=== PATIENT | female | born 1965 | race Caucasian/White ===

== ENCOUNTER 2016-10-24 05:46 | Observation (INO) | payer BC, OTHER ==
--- NOTE | 2016-10-07 13:09 | PAT Medication Instructions ---
Service Date Oct 07, 2016. Current Home Medication List Amitriptyline Hcl (Elavil), 10 MG PO HS Duloxetine Hcl (Cymbalta), 60 MG PO HS Ibuprofen (Advil), 400 MG PO Ibuprofen (Advil), 400-600 MG PO Q6H PRN for Pain Loratadine (Allergy), 10 MG PO QAM Meloxicam (Mobic), 15 MG PO BID Methocarbamol (Robaxin), 500 MG PO HS Tizanidine (Zanaflex), 4 MG PO TID Medication Instructions For Your Scheduled Surgery - Hold the following medications 7-10 days prior to surgery per surgeon instructions: Ibuprofen (Advil), 400-600 MG PO Q6H PRN for Pain Meloxicam (Mobic), 15 MG PO BID - Hold the following medications the morning of surgery: Tizanidine (Zanaflex), 4 MG PO TID Loratadine (Allergy), 10 MG PO QAM - Take the following medications the morning of surgery with a sip of water: Tylenol (if needed) - Take the following medications as scheduled the night before surgery: Tizanidine (Zanaflex), 4 MG PO TID Methocarbamol (Robaxin), 500 MG PO HS Duloxetine Hcl (Cymbalta), 60 MG PO HS Tylenol (if needed) If you have any questions please call us at [phone] or [phone] ( [place]) or [phone]
[2016-10-07 14:02] LABS: BASO % 0.4 %; BASO ABS # 0.02 K/uL (0-0.2); COMPLETE YES; EOS % 2.9 %; HEMATOCRIT 42.2 % (37-47); IG% 0.2 %; LYMPH % 41.1 %; LYMPH ABS # 2.16 K/uL (1.2-3.4); MEAN CELL VOLUME 86.7 fL (80-100); MEAN CORPUSCULAR HGB CONC 33.4 g/dl (32-36); MEAN PLATELET VOLUME 12.3 fL (7.4-10.4); MONO % 8.6 %; NEUT % 46.8 %; PLATELET COUNT 243 K/uL (130-400); RED BLOOD COUNT 4.87 M/uL (4.2-5.4); WHITE BLOOD COUNT 5.25 K/uL (4.8-10.8)
--- NOTE | 2016-10-07 14:11 | DIAGNOSTIC IMAGING REPORT ---
CHEST PREADMISSION(PA/LAT) HISTORY: Preop. COMPARISON: Chest 02/23/2009. FINDINGS: The lungs are clear. Cardiac silhouette is normal in size. No pleural effusions. No pneumothorax. Cervical spinal fusion hardware. IMPRESSION: No acute process. Electronically signed by: Tejas Naylor M.D. 10/07/2016 2:10 PM Dictated Date/Time: 10/07/2016 2:07 PM
[2016-10-07 14:15] LABS: URINE APPEARANCE CLEAR (CLEAR); URINE BILIRUBIN NEG (NEG); URINE COLOR YELLOW; URINE NITRITE NEG (NEG); URINE PH 6.5 (4.5-7.5); URINE SPECIFIC GRAVITY 1.008 (1.000-1.030); UROBILINOGEN NEG (NEG)
[2016-10-07 14:19] LABS: MANUAL MICROSCOPIC REQUIRED? NO; REVIEW REQ? NO
[2016-10-07 14:22] LABS: BUN/CREATININE RATIO 17.1 (10-20); CALCIUM 9.4 mg/dl (8.5-10.1); CREATININE 0.66 mg/dl (0.60-1.20); POTASSIUM 4.1 mmol/L (3.5-5.1)
[~2016-10-24] VITALS: Ht 167.6 cm; Wt 84.1 kg
[2016-10-24] VITALS (13 sets, daily range): BP systolic 109–148; BP diastolic 71–97; PULSE 93–130; TEMP 36.8–37.3; O2SAT 90–97; Ht 167.6 cm; Wt 84.1 kg
[~2016-10-24 05:46] MED LIST: AMIT10TA6 PO; DULO60CA44 PO; IBUP-1050 PO; LORA10TA44 PO; MELO15TA4 PO; METH500T PO; TIZA4CAP PO
[2016-10-24] MEDS ORDERED: CEFAZOLIN 2000 MG/60 ML D5W IV SCH (06:00)
[2016-10-24] MEDS ORDERED: LACTATED RINGER'S 1000ML 1,000 ML IV SCH (06:00)
[2016-10-24] MEDS ORDERED: FENTANYL CITRATE INJ 50 MCG/1 ML 2 ML VIAL ONE ×3 (06:42→09:04)
[2016-10-24] MEDS ORDERED: MIDAZOLAM HCL 1 MG/ML 2ML VIAL ONE (06:42)
[2016-10-24] MEDS ORDERED: SODIUM CHLORIDE 0.9% PF 50 ML VIAL ONE (06:50)
[2016-10-24] MEDS ORDERED: BACITRACIN 50000 UNIT VIAL ONE (06:51)
[2016-10-24] MEDS ORDERED: EpHEDrine SULFATE INJ 50 MG/ML AMP IV PRN (07:00)
[2016-10-24] MEDS ORDERED: ONDANSETRON INJ 2 MG/ML 2 ML VIAL IV PRN ×2 (07:00→17:30)
[2016-10-24] MEDS ORDERED: ATROPINE SULFATE 0.1 MG/ML 5ML SYR IV PRN (07:00)
[2016-10-24] MEDS ORDERED: TRAM-10 PO (07:09)
--- NOTE | 2016-10-24 07:17 | History & Physical Bridge Note ---
H&P Re-Evaluation Bridge Note: I have examined the patient, reviewed the History & Physical and in the interval since the performance of the History & Physical I have noted the following changes of clinical significance: No changes noted
--- NOTE | 2016-10-24 07:20 | History and Physical ---
History & Physical Date Oct 24, 2016. Chief Complaint neck and arm pain History of Present Illness The patient is a 51 year old female with complaints of Additional History Hepatic Disease: No Endocrine Disorder: No Kidney Disease: No Hypertension: No Heart Disease: No Bleeding Tendencies: No Infectious Diseases: No Allergies Coded Allergies: No Known Allergies (Verified , NONE, 10/07/16) Home Medications Scheduled Amitriptyline Hcl (Elavil), 10 MG PO HS Duloxetine Hcl (Cymbalta), 60 MG PO HS Loratadine (Allergy), 10 MG PO QAM Meloxicam (Mobic), 15 MG PO BID Tizanidine (Zanaflex), 4 MG PO TID Scheduled PRN Ibuprofen (Advil), 400-600 MG PO Q6H PRN for Pain Tramadol (Ultram), 50 MG PO Q4H PRN for Pain Physical Examination Skin: warm/dry, no rash Eyes: normal inspection, EOMI, sclerae normal ENT: normal ENT inspection, pharynx normal Head: normocephalic, atraumatic Neck: supple, no adenopathy, trachea midline Respiratory/Chest: lungs clear, normal breath sounds, no respiratory distress Cardiovascular: regular rate, rhythm, no edema, no murmur Abdomen / GI: normal bowel sounds, non tender Back: normal inspection Extremities: normal inspection, normal range of motion Neurologic/Psych: no motor/sensory deficits, alert, normal reflexes, oriented x 3 Diagnosis cervical spondylsis with myeloradiculopathy Plan of Treatment acdf c4-5 c5-6 removal plate c6-7
[2016-10-24] MEDS ORDERED: HYDROmorphone INJ 2 MG/ML SYR/VIAL ONE ×2 (07:58→09:04)
[2016-10-24] MEDS ORDERED: ONDANSETRON INJ 2 MG/ML 2 ML VIAL ONE ×2 (08:51→09:25)
[2016-10-24] MEDS ORDERED: LIDOCAINE HCL 2% 2 ML VIAL (20MG/ML) ONE (08:51)
[2016-10-24] MEDS ORDERED: PROPOFOL IV EMULSION 10 MG/ML 20 ML VIAL IV ONE (08:51)
[2016-10-24] MEDS ORDERED: DEXAMETHASONE SOD INJ 4 MG/ML VIAL ONE (08:51)
[2016-10-24] MEDS ORDERED: ROCURONIUM BROMIDE 10 MG/ML 5 ML VIAL ONE (08:51)
--- NOTE | 2016-10-24 09:03 | [facility] Operative Report ---
Operative Report Operative Date Oct 24, 2016. Pre-Operative Diagnosis Cervical spondylsis with myeloradiculopathy Surgeon Dr. Andi Lynn Yarn Carrier Surgeon(s) Javi Narvaez PA-C Estimated Blood Loss 30mL Findings stenosis Specimens None per surgeon I attest to the content of the Intraoperative Record and any orders documented therein. Any exceptions are noted below.
[2016-10-24] MEDS ORDERED: FLOSEAL HEMOSTATIC MATRIX 5ML TOP ONE (09:11)
[2016-10-24] MEDS ORDERED: ACETAMINOPHEN IV 100 ML IV PRN (09:15)
[2016-10-24] MEDS ORDERED: DiphenhydrAMINE HCL 50 MG/ML VIAL IV PRN (09:15)
[2016-10-24] MEDS ORDERED: DO NOT ADMINISTER PNEUMOCOCCAL VACCINE PRN ×2 (09:15)
[2016-10-24] MEDS ORDERED: TRAMADOL HCL 50 MG TAB PO PRN (09:15)
[2016-10-24] MEDS ORDERED: LORAZEPAM INJ 0.5 MG in SYRINGE 0.75 ML IV PRN (09:15)
[2016-10-24] MEDS ORDERED: LORAZEPAM 0.5 MG TAB PO PRN (09:15)
[2016-10-24] MEDS ORDERED: DO NOT ADMINISTER FLU VACCINE PRN ×3 (09:15)
[2016-10-24] MEDS ORDERED: HYDROmorphone INJ 0.5 MG/0.5 ML SYR IV PRN (09:15)
[2016-10-24] MEDS ORDERED: RACEPINEPHRINE 2.25% NEBU SOLN 0.5 ML VIAL INH PRN (09:15)
[2016-10-24] MEDS ORDERED: MAGNESIUM HYDROXIDE SUSP 30 ML UDC PO PRN (09:15)
[2016-10-24] MEDS ORDERED: DEXAMETHASONE INJ 8 MG in SYRINGE 0 ML IV PRN (09:15)
[2016-10-24] MEDS ORDERED: NALOXONE HCL 0.4 MG/1 ML VIAL/CARP IV PRN (09:15)
[2016-10-24] MEDS ORDERED: METOPROLOL TARTRATE 1 MG/ML VIAL ONE (09:19)
[2016-10-24] MEDS ORDERED: GLYCOPYRROLATE INJ 0.2 MG/ML VIAL ONE (09:25)
[2016-10-24] MEDS ORDERED: NEOSTIGMINE METHYLSULFATE 1 MG/ML 10ML VIAL ONE (09:25)
[2016-10-24] MEDS ORDERED: ESMOLOL HCL 10 MG/ML 10 ML VIAL ONE (09:25)
[2016-10-24] MEDS ORDERED: LABETALOL HCL IV 5 MG/ML 20ML IV ONE (09:25)
[2016-10-24] MEDS ORDERED: PHENYLEPHRINE 100MCG/ML 5ML SYR ONE (09:26)
[2016-10-24] MEDS ORDERED: EpHEDrine SULFATE 50MG/5ML SYR ONE (09:26)
[2016-10-24] MEDS: FENTANYL CITRATE INJ 50 MCG/1 ML 2 ML VIAL IV PRN ×5 (09:28→10:15)
--- NOTE | 2016-10-24 09:28 | OPERATIVE REPORT ---
DATE OF OPERATION: 10/24/2016 PREOPERATIVE DIAGNOSES: Cervical spondylosis, myeloradiculopathy. POSTOPERATIVE DIAGNOSES: Same. PROCEDURE PERFORMED: 1. Removal of anterior cervical instrumentation, C6-C7. 2. Exploration of fusion, C6-C7. 3. Anterior cervical discectomy with bilateral foraminotomy, C4-C5 and C5-C6. 4. Anterior cervical arthrodesis C4-C5 and C5-C6. 5. Placement of cortical allograft filled Lexis bone 6 mm in height at C4-C5 and 7 mm in height at C5-C6. 6. Application of Globus plate and screws from C4-C6. SURGEON: Dr. Andi Lynn. LEVEL VIAL INSPECTOR: Javi Narvaez PA-C. Due to the complex nature of the procedure, the entire surgery was performed with the boiler assistant operator of Javi Narvaez PA-C. The collections assistant, under direct supervision, was involved in the actual performance of all aspects of the surgical procedure including hemostasis, tissue retraction and incision, instrument management, patient positioning, and wound closure. ANESTHESIA: General. DISPOSITION: The patient awakened and taken to PACU in stable condition. HISTORY OF PATIENT'S PROBLEMS: This is a 51-year-old female that presents with above-mentioned diagnoses. After failing an extensive course of nonoperative care, elected to undergo the above-mentioned procedure. Risks, benefits, pros, cons, and alternatives were outlined in detail preoperatively. OPERATION AND FINDINGS: The patient was met with preoperatively, the case discussed, and all questions were addressed. At that point, the patient was taken back to operative suite, and after undergoing successful general endotracheal intubation via department of anesthesia, was placed in supine position on Jaswinder table with head in Thomas head of marketing adometry. All bony prominences were well padded and the eyes were inspected to ensure there was no external pressure placed upon them. At this point, the anterior cervical spine was prepped and draped in normal sterile fashion. With the assistance of fluoroscopy, we identified the C5-C6 disc space and transverse incision was placed along the right anterior aspect of the cervical spine overlying this region. Sharp dissection with the assistance of bipolar cautery performed down to and exposing the anterior cervical spine from C4-C7. We were able to easily identify the plate and remove it without difficulty. We explored the fusion mass, noting it to be intact. I then performed a complete discectomy at C4-C5 out to the uncovertebral joints bilaterally. Clayton distracting pins to assist us in our visualization. I did remove all posterior annular fibers, longitudinal ligament for complete decompression. Endplates were then burred to subcortical bone and a 6 mm cortical allograft filled with Lexis bone tapped into position. I then proceeded to C5-C6 and again complete discectomy was performed out to the uncovertebral joints bilaterally. Clayton distracting pins utilized to assist us in our visualization. We did remove all posterior annular fibers, longitudinal ligament, and bilateral foraminotomies. Endplates were then burred to subcortical bleeding bone and a 7 mm cortical allograft filled with Lexis bone tapped in position. Distracting apparatus was removed and a Globus plate and screw was applied with the assistance of fluoroscopy at C4-C5 and C5-C6. Incision was then copiously irrigated, explored to ensure there was no damage to surrounding structures or remaining bleeding, and a 10 round PINKY drain inserted and closed with 1-0 Vicryl in the fascia, 2-0 Vicryl subcutaneously, 4-0 Monocryl for final skin closure. Steri-Strips and sterile dressing placed. The patient awakened and taken to PACU in stable condition. I attest to the content of the Intraoperative Record and any orders documented therein. Any exceptio ns are noted below.
[2016-10-24] MEDS ORDERED: HYDROmorphone INJ 1 MG/ML SYR IV PRN (09:30)
--- NOTE | 2016-10-24 09:32 | DIAGNOSTIC IMAGING REPORT ---
INTRAOPERATIVE CERVICAL SPINE 2 VIEWS CLINICAL HISTORY: ACDF C4-6 COMPARISON STUDY: No previous studies for comparison. FINDINGS: 8 seconds of fluoroscopic time was utilized. 2 fluoroscopic spot images were acquired. There are postsurgical changes of an anterior discectomy with interbody bone plugs performed the C4-5 and C5-6 levels. There is an anterior metallic plate with screws the C4, C5, and C6 levels. IMPRESSION: Postsurgical changes of anterior cervical discectomy and fusion at the C4-5 and C5-6 levels. Electronically signed by: Tan Salas M.D. 10/24/2016 9:30 AM Dictated Date/Time: 10/24/2016 9:29 AM
[2016-10-24] MEDS ORDERED: IV FLUIDS COMPLETED PRN (09:45)
[2016-10-24] MEDS ORDERED: NURSING VERBAL MED ORDER ONE ×4 (10:15→17:30)
[2016-10-24] MEDS ORDERED: LORAZEPAM 2 MG/ML 1 ML VIAL ONE (10:46)
--- NOTE | 2016-10-24 11:27 | Anesthesiology Progress Note ---
Anesthesia Post Op Note Date & Time Oct 24, 2016 at 11:24 Vital Signs Pain Intensity: 2 Vital Signs Past 12 Hours Date Time Temp Pulse Resp B/P Pulse Ox O2 Delivery O2 Flow Rate FiO2 10/24/16 11:03 112 10/24/16 11:00 113 14 10/24/16 11:00 113 14 115/68 93 10/24/16 10:55 119 15 10/24/16 10:55 117 15 112/79 93 10/24/16 10:50 121 12 134/64 96 10/24/16 10:50 121 12 10/24/16 10:45 119 10 10/24/16 10:45 118 10 126/78 95 10/24/16 10:40 123 10 10/24/16 10:40 122 10 114/95 93 10/24/16 10:35 118 12 94/85 94 10/24/16 10:35 118 12 10/24/16 10:34 36.2 10/24/16 10:31 125 20 10/24/16 10:31 126 20 94 10/24/16 10:26 109 13 94 10/24/16 10:26 110 13 10/24/16 10:25 128/65 10/24/16 10:21 112 14 10/24/16 10:21 113 14 94 10/24/16 10:20 109/42 10/24/16 10:16 115 9 97 10/24/16 10:16 115 9 10/24/16 10:15 119/67 10/24/16 10:11 120 14 10/24/16 10:11 119 14 96 10/24/16 10:10 126/73 10/24/16 10:06 114 16 95 10/24/16 10:06 115 16 10/24/16 10:05 134/66 10/24/16 10:01 116 16 10/24/16 10:01 116 16 92 10/24/16 10:00 114/74 10/24/16 09:56 115 10 10/24/16 09:56 115 10 97 10/24/16 09:55 112 12 10/24/16 09:55 111 12 124/73 92 10/24/16 09:50 111 8 125/82 93 10/24/16 09:50 110 8 10/24/16 09:45 113 11 10/24/16 09:45 Nasal Cannula 3 10/24/16 09:45 111 11 137/80 99 10/24/16 09:40 112 12 125/74 98 10/24/16 09:40 112 12 10/24/16 09:35 109 12 10/24/16 09:35 109 12 132/80 99 10/24/16 09:30 110 14 130/79 100 10/24/16 09:30 110 14 10/24/16 09:25 108 15 10/24/16 09:25 107 15 130/81 100 10/24/16 09:22 120/80 10/24/16 09:22 122 126/88 10/24/16 09:20 36.4 118 16 120/80 100 Mask 10 10/24/16 06:52 36.8 93 16 125/97 95 Room Air Notes Mental Status: alert / awake / arousable, participated in evaluation Pt Amnestic to Procedure: Yes Nausea / Vomiting: adequately controlled Pain: adequately controlled Airway Patency, RR, SpO2: stable & adequate BP & HR: stable & adequate Hydration State: stable & adequate Anesthetic Complications: no major complications apparent Pt was noted to be tachycardic in PACU, HR in the 110s. I spoke with the pt, and she denied pain or anxiety. She did state having some restlessness. A 12 lead EKG was performed showing sinus tachycardia without notable ST changes. She was given a total of 5mg of metoprolol IV and 0.5mg ativan IV. Pt was resting comfortably without any complaints. The pt was otherwise stable for discharge to her room.
[2016-10-24] MEDS: MoRPHine SULFATE 10 MG/ML CARP/VIAL IV PRN ×2 (12:10→12:15)
[2016-10-24] MEDS: LACTATED RINGER'S 1000ML 1,000 ML IV SCH ×2 (13:32→21:14)
[2016-10-24] MEDS: OXYCODONE HCL IR 5 MG TAB (IMMEDIATE RELEASE) PO PRN ×3 (14:38→20:31)
[2016-10-24] MEDS: DEXAMETHASONE INJ 6 MG in SYRINGE 0 ML IV SCH ×2 (16:10→23:11)
[2016-10-24] MEDS: CEFAZOLIN IV 2,000 MG in DEXTROSE 5% 50ML 50 ML IV SCH ×2 (16:21→23:11)
[2016-10-24] MEDS ORDERED: LORAZEPAM INJ 1 MG in SYRINGE 0.5 ML IV ONE (16:30)
[2016-10-24] MEDS ORDERED: PROMETHAZINE HCL INJ 25 MG in SODIUM CHLORIDE 0.9% 50ML 50 ML IV PRN (17:30)
[2016-10-24 19:36] LABS: HEMATOCRIT 39.8 % (37-47)
[2016-10-24 19:53] LABS: BUN/CREATININE RATIO 12.3 (10-20); CALCIUM 9.1 mg/dl (8.5-10.1); CREATININE 0.69 mg/dl (0.60-1.20); POTASSIUM 4.2 mmol/L (3.5-5.1)
[2016-10-24] MEDS: DOCUSATE SODIUM 100 MG CAP PO SCH (20:31)
--- NOTE | 2016-10-24 20:55 | Medical Consult ---
Consultation Date of Consultation: Oct 24, 2016 patient seen in her room @ 20:40 . Attending Physician: Andi Lynn D.O. . Reason for Consultation: tachycardia . History of Present Illness 51 YO female from [place], followed by Dr. Rico for primary care. History of anxiety, depression, cervical spondylosis with radiculopathy. Anterior cervical exploration, decompression, fusion performed today by Dr. Lynn. Patient has been tachycardiac throughout the day with heart rates at high as 130. She feels well except for postop pain rated 8-9/10 and some transient nausea. No fever. No hypoxia. No chest pain. No cough or dyspnea. No vomiting. Has Murdock cath post op. . Past Medical/Surgical History Chronic Medical Problems: (1) Anxiety Status: Chronic (2) Cervical stenosis of spinal canal Status: Chronic (3) Depression Status: Chronic Surgical Problems: (1) status post anterior cervical discectomy foraminotomy fusion C6-7 Permanent Comment: Dr. Lynn 2008 Status: Chronic . Family History Unknown (adopted) . Social History Smoking Status: Former Smoker Alcohol Use: none Allergies Coded Allergies: No Known Allergies (Verified , NONE, 10/07/16) Home Medications Reported Home Medications Medications Dose Route/Sig Max Daily Dose Days Date Category Ultram (Tramadol HCl) 50 Mg Tab 50 Mg PO Q4H PRN 10/24/16 Reported Advil (Ibuprofen) 200 Mg Tab 400-600 Mg PO Q6H PRN 10/07/16 Reported Allergy (Loratadine) 10 Mg Tab 10 Mg PO HS 10/07/16 Reported Elavil (Amitriptyline Hcl) 10 Mg Tab 10 Mg PO HS 10/07/16 Reported Cymbalta (Duloxetine Hcl) 60 Mg Cap 60 Mg PO HS 10/07/16 Reported Zanaflex (Tizanidine HCl) 4 Mg Cap 4 Mg PO TID 10/07/16 Reported Mobic (Meloxicam) 15 Mg Tab 15 Mg PO BID 10/07/16 Reported Current Inpatient Medications Current Inpatient Medications Medications (Trade) Dose Ordered Sig/Sandip Route Start Time Stop Time Status Last Admin Dose Admin Racepinephrine 0.5 ml 0.5 ml ONE PRN INH 10/24/16 09:15 11/23/16 09:14 Acetaminophen (Ofirmev Iv) 100 ml @ 400 mls/hr Q8H PRN IV 10/24/16 09:15 11/23/16 09:14 Hydromorphone HCl (Dilaudid Inj) 0.5 mg Q3H PRN IV 10/24/16 09:15 11/07/16 09:14 Magnesium Hydroxide (Milk Of Magnesia Susp) 30 ml DAILY PRN PO 10/24/16 09:15 11/23/16 09:14 Docusate Sodium 100 mg 100 mg BID PO 10/24/16 21:00 11/23/16 20:59 10/24/16 20:31 100 MG Cefazolin Sodium/ Dextrose (Ancef Iv/D5 50ml) 60 ml @ 100 mls/hr Q8H IV 10/24/16 16:00 10/25/16 08:35 10/24/16 16:21 100 MLS/HR Lorazepam 0.5 mg 0.5 mg Q8H PRN PO 10/24/16 09:15 11/23/16 09:14 Lorazepam/Syringe (Ativan Inj/ Syringe) 1 ml @ 1 mls/min Q8H PRN IV 10/24/16 09:15 11/23/16 09:14 Diphenhydramine HCl 25 mg 25 mg Q6H PRN IV 10/24/16 09:15 11/23/16 09:14 Dexamethasone Sodium Phosphate/ Syringe (Decadron Inj/ Syringe) 1.5 ml @ 1 mls/min Q8H IV 10/24/16 16:00 10/25/16 08:02 10/24/16 16:10 1 MLS/MIN Pneumococcal Polysaccharide Vaccine 1 ea PRN PRN N/A 10/24/16 09:15 11/23/16 09:14 Influenza Virus Vacc Triv Types A&B 1 ea 1 ea PRN PRN N/A 10/24/16 09:15 11/23/16 09:14 Lactated Ringer's (Lr 1000ml) 1,000 ml @ 80 mls/hr [id number] IV 10/24/16 09:03 10/25/16 13:30 10/24/16 13:32 80 MLS/HR Oxycodone HCl (Roxicodone Immediate Rel Tab) 5mg for pain scale 4-6 1... Q4H PRN PO 10/24/16 09:15 11/07/16 09:14 10/24/16 20:31 10 MG Polyethylene (Miralax Powder Packet) 17 gm DAILY PO 10/26/16 09:00 11/25/16 08:59 Bisacodyl (Dulcolax Tab) 5 mg DAILY PRN PO 10/26/16 06:00 11/25/16 05:59 Bisacodyl 10 mg 10 mg DAILY PRN DC 10/26/16 06:00 11/25/16 05:59 Dexamethasone Sodium Phosphate/ Syringe (Decadron Inj/ Syringe) 2 ml @ 1 mls/min ONE PRN IV 10/24/16 09:15 11/23/16 09:14 Naloxone HCl (Narcan Inj) 0.1 mg Q5M PRN IV 10/24/16 09:15 11/23/16 09:14 Amitriptyline HCl (Elavil Tab) 10 mg HS PO 10/24/16 21:00 11/23/16 20:59 Duloxetine HCl (Cymbalta Cap) 60 mg HS PO 10/24/16 21:00 11/23/16 20:59 10/24/16 20:31 60 MG Tramadol HCl (Ultram Tab) 50 mg Q4H PRN PO 10/24/16 09:15 11/23/16 09:14 Hydromorphone HCl (Dilaudid Inj) 1 mg Q3H PRN IV 10/24/16 09:30 11/07/16 09:29 Miscellaneous (Iv Fluids Completed) 1 ea PRN PRN N/A 10/24/16 09:45 10/24/17 09:44 Ondansetron HCl 4 mg 4 mg Q6H PRN IV 10/24/16 17:30 11/23/16 17:29 Promethazine HCl/ Sodium Chloride (Phenergan Inj/ Nss 50ml) 51 ml @ 204 mls/hr Q6H PRN IV 10/24/16 17:30 11/23/16 17:29 Review of Systems As noted above. . Physical Exam Date Time Temp Pulse Resp B/P Pulse Ox O2 Delivery O2 Flow Rate FiO2 10/24/16 20:07 130 14 90 Room Air 10/24/16 19:34 37.3 127 16 148/88 93 Nasal Cannula 2.0 BiPAP 10/24/16 19:14 Nasal Cannula 10/24/16 18:50 127 10/24/16 16:05 36.9 119 16 135/77 96 Nasal Cannula 2.0 10/24/16 15:50 125 16 97 Nasal Cannula 3.0 10/24/16 15:04 36.9 121 17 123/86 95 Nasal Cannula 3.0 10/24/16 13:54 36.8 120 17 120/79 94 Humidified Oxygen 3.0 10/24/16 13:29 121 16 109/71 94 Nasal Cannula 3.0 10/24/16 13:28 122 16 96 Nasal Cannula 4.0 10/24/16 13:00 94 Nasal Cannula 3.0 10/24/16 13:00 37.0 128 18 115/74 94 Nasal Cannula 3.0 10/24/16 13:00 Nasal Cannula 3.0 Humidified Oxygen 10/24/16 12:55 36.8 115/68 10/24/16 12:51 121 13 10/24/16 12:51 121 13 96 10/24/16 12:50 111/76 10/24/16 12:46 117 17 10/24/16 12:46 116 17 96 10/24/16 12:45 107/79 10/24/16 12:41 119 11 96 10/24/16 12:41 119 11 10/24/16 12:40 101/68 10/24/16 12:36 118 13 95 10/24/16 12:36 118 13 10/24/16 12:35 117/71 10/24/16 12:31 118 9 10/24/16 12:31 117 9 95 10/24/16 12:30 118/71 10/24/16 12:26 118 14 10/24/16 12:26 118 14 95 10/24/16 12:25 120 19 10/24/16 12:25 120 19 118/84 95 10/24/16 12:20 117 16 10/24/16 12:20 118 16 109/70 95 10/24/16 12:15 118 13 108/71 94 10/24/16 12:15 118 13 10/24/16 12:10 117 14 115/68 95 10/24/16 12:10 117 14 10/24/16 12:05 118 11 10/24/16 12:05 120 11 113/71 94 10/24/16 12:00 120 15 107/68 95 10/24/16 12:00 120 15 10/24/16 11:55 120 17 123/64 95 10/24/16 11:55 120 17 10/24/16 11:50 121 12 118/61 93 10/24/16 11:50 121 12 10/24/16 11:45 116 13 126/75 94 10/24/16 11:45 117 13 10/24/16 11:41 115/67 10/24/16 11:40 119 10 94 10/24/16 11:40 119 10 10/24/16 11:35 119 12 111/65 93 10/24/16 11:35 119 12 10/24/16 11:34 119 11 10/24/16 11:34 120 11 94 10/24/16 11:30 114/60 10/24/16 11:29 116 10/24/16 11:29 117 14 94 10/24/16 11:25 113/70 10/24/16 11:24 117 14 94 10/24/16 11:24 117 10/24/16 11:20 119/60 10/24/16 11:19 118 10 93 10/24/16 11:19 117 10 10/24/16 11:15 138/ 10/24/16 11:14 116 12 94 10/24/16 11:14 116 12 10/24/16 11:10 117/70 10/24/16 11:09 118 14 10/24/16 11:09 119 14 93 10/24/16 11:05 113/80 10/24/16 11:04 121 15 10/24/16 11:04 122 15 93 10/24/16 11:03 112 10/24/16 11:00 113 14 10/24/16 11:00 113 14 115/68 93 10/24/16 10:55 119 15 10/24/16 10:55 117 15 112/79 93 10/24/16 10:50 121 12 134/64 96 10/24/16 10:50 121 12 10/24/16 10:45 119 10 10/24/16 10:45 118 10 126/78 95 10/24/16 10:40 123 10 10/24/16 10:40 122 10 114/95 93 10/24/16 10:35 118 12 94/85 94 10/24/16 10:35 118 12 10/24/16 10:34 36.2 10/24/16 10:31 125 20 10/24/16 10:31 126 20 94 10/24/16 10:26 109 13 94 10/24/16 10:26 110 13 10/24/16 10:25 128/65 10/24/16 10:21 112 14 10/24/16 10:21 113 14 94 10/24/16 10:20 109/42 10/24/16 10:16 115 9 97 10/24/16 10:16 115 9 10/24/16 10:15 119/67 10/24/16 10:11 120 14 10/24/16 10:11 119 14 96 10/24/16 10:10 126/73 10/24/16 10:06 114 16 95 10/24/16 10:06 115 16 10/24/16 10:05 134/66 10/24/16 10:01 116 16 10/24/16 10:01 116 16 92 10/24/16 10:00 114/74 10/24/16 09:56 115 10 10/24/16 09:56 115 10 97 10/24/16 09:55 112 12 10/24/16 09:55 111 12 124/73 92 10/24/16 09:50 111 8 125/82 93 10/24/16 09:50 110 8 10/24/16 09:45 113 11 10/24/16 09:45 Nasal Cannula 3 10/24/16 09:45 111 11 137/80 99 10/24/16 09:40 112 12 125/74 98 10/24/16 09:40 112 12 10/24/16 09:35 109 12 10/24/16 09:35 109 12 132/80 99 10/24/16 09:30 110 14 130/79 100 10/24/16 09:30 110 14 10/24/16 09:25 108 15 10/24/16 09:25 107 15 130/81 100 10/24/16 09:22 120/80 10/24/16 09:22 122 126/88 10/24/16 09:20 36.4 118 16 120/80 100 Mask 10 10/24/16 06:52 36.8 93 16 125/97 95 Room Air General Appearance: WD/WN, no apparent distress Head: normocephalic, atraumatic Eyes: normal inspection, PERRL, EOMI, sclerae normal ENT: normal ENT inspection, hearing grossly normal Neck: + pertinent finding (cervical collar) Respiratory/Chest: lungs clear, normal breath sounds, no respiratory distress, no accessory muscle use Cardiovascular: regular rate, rhythm, no edema, no JVD, + tachycardia, + systolic murmur (I/ systolic murmur at base) Abdomen/GI: normal bowel sounds, non tender, soft, no organomegaly, no pulsatile mass Extremities/Musculoskelatal: normal inspection, no calf tenderness, no pedal edema, + pertinent finding (TEDS and SCD's applied to both lower extremities) Neurologic/Psych: 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-XII nml as tested (PERRL, EOMI, no facial palsy, no dysarthria), alert, normal mood/affect, oriented x 3 Skin: normal color, warm/dry, no rash Laboratory Results Last 24 Hours Test 10/24/16 19:29 Hemoglobin 13.3 g/dL Hematocrit 39.8 % Sodium Level 139 mmol/L Potassium Level 4.2 mmol/L Chloride Level 101 mmol/L Carbon Dioxide Level 30 mmol/L Anion Gap 8.0 mmol/L Blood Urea Nitrogen 9 mg/dl Creatinine 0.69 mg/dl Est Creatinine Clear Calc Drug Dose 106.6 ml/min Estimated GFR () 117.6 Estimated GFR (Non- 101.5 BUN/Creatinine Ratio 12.3 Random Glucose 155 mg/dl Calcium Level 9.1 mg/dl EKG performed at 19:[address] at 130 / minute, no acute changes. . Assessment & Plan TACHYCARDIA Sinus tachycardia throughout the day. BP and O2 sats stable. CBC and basic metabolic profile OK. Low clinical suspicion for pulmonary embolism. D-dimer would not be helpful in postoperative setting. Tachycardia most likely due to pain and anxiety. Pain management as ordered. Further evaluation as indicated if tachycardia persists. ANXIETY / DEPRESSION Continue usual meds. VTE PROPHYLAXIS Per Ortho protocol. TEDS and SCD's applied. Thank you for this consultation. We will follow the patient with you during their hospital stay. I am working night warehouse selector. Dr. Baker will be rounding during the day. You can reach a member of the [facility] Hospitalist Team 23/02 via pager @ . You can reach me via cell @ [phone]. .
[2016-10-24] MEDS ORDERED: LORATADINE 10 MG TAB PO SCH (21:00)
[2016-10-24] MEDS ORDERED: AMITRIPTYLINE HCL 10 MG TAB PO SCH (21:00)
[2016-10-24] MEDS ORDERED: DULOXETINE HCL 60 MG CAP PO SCH (21:00)
[2016-10-25] VITALS (10 sets, daily range): BP systolic 126–147; BP diastolic 85–96; PULSE 108–124; TEMP 36.9–37; O2SAT 90–96
[2016-10-25] MEDS ORDERED: COUGH DROP (SUGAR FREE) LOZ 24 LOZ/1 BOX ONE (07:21)
[2016-10-25] MEDS ORDERED: NURSING DECISION MEDICATION ORDER SCH (07:30)
[2016-10-25] MEDS ORDERED: COUGH DROP (SUGAR FREE) LOZ 24 LOZ/1 BOX PO PRN (07:45)
[2016-10-25] MEDS: CEFAZOLIN IV 2,000 MG in DEXTROSE 5% 50ML 50 ML IV SCH (09:02)
[2016-10-25] MEDS: DOCUSATE SODIUM 100 MG CAP PO SCH (09:03)
[2016-10-25] MEDS: OXYCODONE HCL IR 5 MG TAB (IMMEDIATE RELEASE) PO PRN (09:03)
[2016-10-25] MEDS: DEXAMETHASONE INJ 6 MG in SYRINGE 0 ML IV SCH (09:03)
[2016-10-25] MEDS ORDERED: RXC5 PO (10:03)
[2016-10-25] MEDS: LACTATED RINGER'S 1000ML 1,000 ML IV SCH (10:03)
--- NOTE | 2016-10-25 10:04 | Discharge Instructions ---
Discharge Instructions Date of Service Oct 25, 2016. Admission Reason for Admission: Spinal Stenosis Discharge Discharge Diagnosis / Problem: stenosis Discharge Goals Goal(s): Improve function Activity Recommendations Activity Limitations: per Instructions/Follow-up section . Instructions / Follow-Up Instructions / Follow-Up ACTIVITY RECOMMENDATIONS: SELF CARE INSTRUCTIONS AFTER CERVICAL FUSIONS 1. No smoking. Smoking drastically decreases the chance of a solid fusion. 2. No bending, lifting more than 5 pounds, or twisting (roll like a log when turning in bed). 3. You may shower 3 days after surgery. Thoroughly dry wound. Do not soak in the tub. 4. Cervical collar: Must be worn at all times including sleeping. You may remove the brace only to bath, eat and if you are sitting in a recliner. 5. Please walk as much as you can for exercise. Gradually increase the distance that you walk as your endurance increases. SPECIAL CARE INSTRUCTIONS: VERY IMPORTANT TO READ AND REVIEW A. Do not take any anti-inflammatory medications (i.e. Indocin, Advil, Aspirin, Naprosyn, Aleve, Motrin, etc.) as these may inhibit the chance of a solid fusion. Tylenol is okay to take. B. Your surgical incision has been closed with a cosmetic suture under the skin that will dissolve in about 6 weeks. In 14 days, you can use a pair of clean scissors and cut the suture that is left outside of the skin at the ends of your incision. C. Complications are uncommon, but please contact us if you have any signs or symptoms of: 1. wound infection (fever higher than 102.5 degrees F, redness, separation of wound, drainage, or increasing pain from the incision) 2. blood clots in legs (pain, swelling, redness and warmth in legs) 3. urinary tract infection (fever higher than 102.5 degrees, burning upon urination or increased frequency of urination) 4. nerve problems (inability to walk on your toes or heels, numbness, loss of bowel or bladder control) 5. any other symptoms that concern you. D. Please call the office at if you have any concerns or questions about your operation or recovery. MANAGING PAIN AFTER SPINAL SURGERY 1. Narcotic medication is intended for short-term use and will be provided for surgical pain. Surgical pain usually lasts for a period of 4-6 weeks. Narcotic medication includes Percocet, Vicodin, Darvocet, Tylenol #3 or Lortab. 2. Longer-term pain is more appropriately treated with non-narcotic medication such as Tylenol ES. 3. Muscle spasm is not appropriately treated with narcotics. Muscle relaxers such as Soma, Flexeril or Skelaxin can be used along with Tylenol ES. 4. Remember that we all live with some "aches and pains". This is not unusual or uncommon after an injury or as we get older. 5. We will provide appropriate medication within the normal guidelines of their prescribed use. We will also be very cautious and aware of potential abuse and extended duration of patients' medication needs. 6. Please allow 2-3 days to process refills. Prescriptions will not be mailed but must be picked up at the office. FOLLOW UP VISIT: Keep your scheduled follow-up appointment. Any questions, please call the office at . Current Hospital Diet Patient's current hospital diet: Clear Liquid Diet Discharge Diet Recommended Diet: Regular Diet Procedures Procedures Performed: C4-C5, C5-C6 Anterior Cervical Discectomy and Fusion. [place] Cervical Allograft at C4-C5, C5-C6; Removal of Intervertebral Disc/Decompression Pending Studies Studies pending at discharge: no Medical Emergencies . Who to Call and When: Medical Emergencies: If at any time you feel your situation is an emergency, please call 911 immediately. . Non-Emergent Contact Non-Emergency issues call your: Primary Care Provider . "Provider Documentation" section prepared by Andi Lynn. VTE Core Measure Inpt VTE Proph given/why not?: Kika Jaimes, SCD's
--- NOTE | 2016-10-25 10:37 | DISCHARGE SUMMARY ---
DATE OF DISCHARGE: 10/25/2016. PRINCIPAL DIAGNOSIS: Cervical spinal stenosis. HOSPITAL COURSE FOLLOWS: On 10/24/2016 patient underwent anterior cervical discectomy and fusion, tolerated this well and taken to the orthopedic floor postoperatively. Postop day #1, pain was well controlled. Arm symptoms improved, stable. Subsequently discharged home. Discharge orders and instructions can be found on the chart for further review.
[2016-10-26] MEDS ORDERED: BISACODYL 10 MG SUPP PR PRN (06:00)
[2016-10-26] MEDS ORDERED: BISACODYL 5 MG TABEC PO PRN (06:00)
[2016-10-26] MEDS ORDERED: POLYETHYLENE (MIRALAX) 17 GM PACK PO SCH (09:00)
== END 2016-10-25 12:15 | disposition home or self-care (01) ==
LOC: ENRESERVDT → ENRESERVTM → C.ACU 05:46 → C.3E 07:30
PROVIDERS: ADMIT Orthopaedic Surgery Orthopaedic Surgery of the Spine; ATTEND Orthopaedic Surgery Orthopaedic Surgery of the Spine
DX: M47.22 Other spondylosis with radiculopathy, cervical region (principal); F32.9 Major depressive disorder, single episode, unspecified; R00.0 Tachycardia, unspecified; F41.9 Anxiety disorder, unspecified